=== PATIENT | male | born 1955 | race Native Hawaiian/Other Pacific Islander ===

== ENCOUNTER 2020-12-05 14:27 | Emergency (ER) | payer OTHER ==
[~2020-12-05] VITALS: Ht 177.8 cm; Wt 75.3 kg
[2020-12-05 15:21] LABS: PLATELET COUNT 138 K/uL (142-355)
[2020-12-05 15:35] LABS: SODIUM 140 mmol/L (136-145)
[2020-12-05 15:42] LABS: POTASSIUM 6.3 mmol/L (3.6-5.2)
[2020-12-05 21:56] LABS: POTASSIUM 4.7 mmol/L (3.6-5.2)
[2020-12-05 22:33] VITALS: BP 135/85; TEMP 98
== END 2020-12-05 22:33 | disposition home or self-care (01) ==
LOC: ED 14:27
PROVIDERS: Emergency Medicine
DX: N17.8 Other acute kidney failure (principal); E87.5 Hyperkalemia; J45.909 Unspecified asthma, uncomplicated
CPT/HCPCS: 36415; 80048; 80053; 84484; 85027; 85379; 93005; 94664; 96360; 96365; 96375; 99284; J0610; J1815; J7060